=== PATIENT | male | born 1955 | race Two or more races ===

== ENCOUNTER 2018-11-11 16:36 | Emergency (ER) | payer MEDICAID ==
[~2018-11-11] VITALS: Ht 172.7 cm; Wt 68.0 kg
[2018-11-11] MEDS ORDERED: BUDE6HFA IH (16:44)
[2018-11-11] MEDS ORDERED: HYDROCODONE/ACETAMINOPHEN 5/325MG TABLET PO PRN (17:30)
[2018-11-11] MEDS ORDERED: IBUPROFEN 600MG TABLET PO ONE (17:30)
[2018-11-11 20:06] VITALS: BP 136/72
== END 2018-11-11 20:09 | disposition home or self-care (01) ==
LOC: ER 16:36
DX: S30.0XXA Contusion of lower back and pelvis, initial encounter (principal); S01.312A Laceration without foreign body of left ear, initial encounter; J45.909 Unspecified asthma, uncomplicated; Z79.899 Other long term (current) drug therapy; Y04.0XXA Assault by unarmed brawl or fight, initial encounter; Y93.89 Activity, other specified; Y92.89 Other specified places as the place of occurrence of the external cause; Y99.8 Other external cause status
CPT/HCPCS: 72131; 99284